=== PATIENT | female | born 1980 | race Caucasian/White ===

== ENCOUNTER 2025-06-07 08:05 | Outpatient (REF) | payer OTHER, SELFPAY | END 2025-06-07 08:06 | disposition home or self-care (01) | LOC: HO.HOSX 08:05 | PROVIDERS: Visit Provider Physician Assistant | DX: Z13.89 Encounter for screening for other disorder (principal) ==

== ENCOUNTER 2025-06-10 08:12 | Outpatient (AMB) | payer OTHER, SELFPAY ==
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
[2025-06-10 08:30] VITALS: BMI 30.9
== END 2025-06-10 09:40 | disposition home or self-care (01) ==
LOC: HO.HOS 08:13
PROVIDERS: Visit Provider Physician Assistant
DX: S82.401A Unspecified fracture of shaft of right fibula, initial encounter for closed fracture (principal)
CPT/HCPCS: 27786; 99204

== ENCOUNTER 2025-06-10 08:12 | Outpatient (REF) | payer OTHER, SELFPAY ==
--- NOTE | ~2025-06-10 | XR_ITS ---
EXAMINATION: XR ANKLE 3 OR MORE VIEWS RIGHT HISTORY: M25.579 - Pain in unspecified ankle and joints of unspecified foot COMPARISON: Comparison is made with the prior outside examination from [facility] dated 06/01/2025. FINDINGS: Three views of the right ankle are submitted. Osseous mineralization is normal. Again seen is a fracture of the distal fibula. A small amount of periosteal reaction is noted, consistent with healing. A well-corticated osseous density adjacent to the tip of the medial malleolus is likely the result of old trauma. There is a plantar calcaneal spur. The joint spaces are preserved. The soft tissues are unremarkable. XR/XR ankle RT min 3V IMPRESSION: Healing fracture of the distal fibula. Electronically signed by: Lino Pollock MD 06/10/2025 08:33 AM EDT
--- OUTSIDE RECORDS SUMMARY | 2025-06-10 08:31 | XMS_ITS | Clinical Summary ---
Author Organization [facility] [employer] [facility] lin Address [address] [facility] [place] [address] Care Team Providers Care Supervisor [employer] Name Role Phone Unavailable Primary Care Provider Unavailabl e Social History Tobacco Use Types Packs/Day Years Used Date Smoking Tobacco: Never Assessed Comments Unknown Sex and Gender Information Value Date Recorded Sex Assigned at Not on file Legal Sex Female 2:22 PM EDT Gender Identity Not on file Sexual Orientation Not on file Plan of Treatment Health Maintenance Due Date Last Done Comments Colorectal Cancer: [place]ONOS[place] PY Screening every 10 yrs (or Modifier) 1979 Depression: Screening Annual ly using PHQ-2/9 in Adults 18 yrs or above (or HM Modifier)([facility]) 1997 Hepatitis C Virus Infection in Adolescents and Adults: Screening (or Modifier) ([facility]) 1997 SDVA Screening Reminder: Justina linder for all adults ([facility]) 1997 Tobacco Smoking Cessation: i n Adults excluding Women: Behavioral and Pharmacotherapy Interventions ([facility]) 1997 DTaP/Tdap/Td Vaccines ([facility]) (1 - Tdap) 1998 Cervical Cancer Screenin 1-65 yrs of age (or Modifier) 2000 Cervical Cancer Screening: P ap every 3 yrs pts age 21-65 2000 Cervical Cancer: Pap Screeni ng with Modifier timing ([facility]) 2000 Cervical Cancer: hrHPV alone or with cotesting Pap for Pts 30-65yrs screening every 5yrs ([facility]) 2000 COVID-19 Vaccine Screening: Initial Series and Booster Status ([facility]) ( - 2023- season) 2024 Colorectal Cancer Screening 45 -75 Yrs (or HM Modifier) 2024 Colorectal Cancer: FLEXIBLE SIGMOIDOSCOPY Screening every 5 yrs 2024 Colorectal Cancer: Fecal Immunochemical Test (FIT) Annually [facility] 2024 Colorectal Cancer: High-sens itivity gFOBT Screening Annually [facility] 2024 Colorectal Cancer: Stool Col oguard Screening every 3 yrs 2024 Colorectal Cancer:CT Colonog uriah Screening every 5 yrs 2024 Flu Vaccination: Yearly for ages 18mos through 64 years (or Modifier)([facility]) 05/31/2025 Zoster/Shingles Vaccine Seri es Screening: Adults aged 18+ yrs (or HM Modifiers)([facility]) (1 of 2) 2029 Pneumococcal Vaccination Scr eening: Pts 0-19 & 19-49 yrs of age ([facility]) Aged Out No longer eligible based on patient's age to complete this topic Medical Devices Not on file Insurance [facility] [address] [place] [id number]
== END 2025-06-10 08:13 | disposition home or self-care (01) ==
LOC: HO.HOSX 08:12
PROVIDERS: Visit Provider Physician Assistant
DX: S82.401D Unspecified fracture of shaft of right fibula, subsequent encounter for closed fracture with routine healing (principal); M25.571 Pain in right ankle and joints of right foot; W21.89XD Striking against or struck by other sports equipment, subsequent encounter
CPT/HCPCS: 27786; 73610

== ENCOUNTER → 2025-06-10 08:16 | Outpatient (BNV) | payer OTHER, SELFPAY | PROVIDERS: Visit Provider Radiology Diagnostic Radiology | DX: S82.401A Unspecified fracture of shaft of right fibula, initial encounter for closed fracture (principal) | CPT/HCPCS: 73610 ==

== ENCOUNTER 2025-07-11 08:35 | Outpatient (REF) | payer OTHER, SELFPAY ==
--- NOTE | ~2025-07-11 | XR_ITS ---
EXAMINATION: XR ANKLE 3 OR MORE VIEWS RIGHT HISTORY: M25.579 - Pain in unspecified ankle and joints of unspecified foot COMPARISON: Comparison is made with the prior examination dated 06/10/2025. FINDINGS: Three views of the right ankle are submitted. Osseous mineralization is normal. There has been further healing of the previously seen nondisplaced fracture of the distal fibula with greater callus formation noted. Again seen is a well-corticated osseous density adjacent to the tip of the medial malleolus, consistent with old trauma. There is a small plantar calcaneal spur. The joint spaces are preserved. The soft tissues are unremarkable. XR/XR ankle RT min 3V IMPRESSION: Healing nondisplaced fracture of the distal fibula. Electronically signed by: Lino Pollcok MD 07/11/2025 01:49 PM EDT
--- OUTSIDE RECORDS SUMMARY | 2025-07-12 09:12 | XMS_ITS | Clinical Summary ---
Author Organization [facility] [employer] [facility] lin Address [address] [facility] [place] [address] Care Team Providers Care Arborer Name Role Phone Unavailable Primary Care Provider [...] Adults 18 yrs or above (or HM Modifier)([facility]) 1997 Hepatitis C Virus Infection in Adolescents and Adults: Screening (or Modifier) ([facility]) 1997 SDIL Screening Reminder: Justina linder for all adults ([facility]) 1997 Tobacco Smoking Cessation: i n Adults excluding Women: Behavioral and Pharmacotherapy Interventions ([facility]) 1997 DTaP/Tdap/Td Vaccines ([facility]) (1 - Tdap) 1998 Cervical Cancer Screenin 1-65 yrs of age (or Modifier) 2000 Cervical Cancer Screening: P ap every 3 yrs pts age 21-65 2000 Cervical Cancer: Pap Screeni ng with Modifier timing ([facility]) 2000 Cervical Cancer: hrHPV alone or with cotesting Pap for Pts 30-65yrs screening every 5yrs ([facility]) 2000 Colorectal Cancer Screening 45 -75 Yrs (or HM Modifier) 2024 Colorectal Cancer: FLEXIBLE SIGMOIDOSCOPY Screening every 5 yrs 2024 Colorectal Cancer: Fecal Immunochemical Test (FIT) Annually [facility] 2024 Colorectal Cancer: High-sens itivity gFOBT Screening Annually [facility] 2024 Colorectal Cancer: Stool Col oguard Screening every 3 yrs 2024 Colorectal Cancer:CT Colonog uriah Screening every 5 yrs 2024 Flu Vaccination: Yearly for ages 18mos through 64 years (or Modifier)([facility]) 05/31/2025 Zoster/Shingles Vaccine Seri es Screening: Adults aged 18+ yrs (or HM Modifiers)([facility]) (1 of 2) 2029 Pneumococcal Vaccination Scr eening: Pts 0-19 & 19-49 yrs of age ([facility]) Aged Out No longer eligible based on patient's age to complete this topic Medical Devices [place] [id number] [place] [phone]
== END 2025-07-11 08:36 | disposition home or self-care (01) ==
LOC: HO.HOSX 08:35
PROVIDERS: Visit Provider Physician Assistant
DX: S82.401D Unspecified fracture of shaft of right fibula, subsequent encounter for closed fracture with routine healing (principal); X58.XXXD Exposure to other specified factors, subsequent encounter
CPT/HCPCS: 73610

== ENCOUNTER 2025-07-11 12:44 | Outpatient (AMB) | payer OTHER, SELFPAY ==
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
== END 2025-07-11 14:26 | disposition home or self-care (01) ==
LOC: HO.HOS 12:44
PROVIDERS: Visit Provider Physician Assistant
DX: S82.401A Unspecified fracture of shaft of right fibula, initial encounter for closed fracture (principal)
CPT/HCPCS: 99024

== ENCOUNTER → 2025-07-11 12:47 | Outpatient (BNV) | payer OTHER, SELFPAY | PROVIDERS: Visit Provider Radiology Diagnostic Radiology | DX: M25.571 Pain in right ankle and joints of right foot (principal) | CPT/HCPCS: 73610 ==

== ENCOUNTER 2025-08-20 10:04 | Outpatient (REF) | payer OTHER, SELFPAY ==
--- OUTSIDE RECORDS SUMMARY | 2025-08-22 11:49 | XMS_ITS | Clinical Summary ---
Author Organization [facility] [employer] [facility] lin Address [address] [facility] [address] Care Team Providers Care Melt Supervisor Name Role Phone Unavailable Primary Care Provider [...] Adults 18 yrs or above (or HM Modifier)([facility]) 1997 Hepatitis C Virus Infection in Adolescents and Adults: Screening (or Modifier) ([facility]) 1997 SDIA Screening Reminder: Justina linder for all adults ([facility]) 1997 Tobacco Smoking Cessation: i n Adults excluding Women: Behavioral and Pharmacotherapy Interventions ([facility]) 1997 DTaP/Tdap/Td Vaccines ([facility]) (1 - Tdap) 1998 Cervical Cancer Screenin 1-65 yrs of age (or Modifier) 2000 Cervical Cancer Screening: P ap every 3 yrs pts age 21-65 2000 Cervical Cancer: Pap Screeni ng with Modifier timing ([facility]) 2000 Cervical Cancer: hrHPV alone or with cotesting Pap for Pts 30-65yrs screening every 5yrs ([facility]) 2000 Colorectal Cancer Screening 45 -75 Yrs (or HM Modifier) 2024 Colorectal Cancer: FLEXIBLE SIGMOIDOSCOPY Screening every 5 yrs 2024 Colorectal Cancer: Fecal Immunochemical Test (FIT) Annually [facility] 2024 Colorectal Cancer: High-sens itivity gFOBT Screening Annually [facility] 2024 Colorectal Cancer: Stool Col oguard Screening every 3 yrs 2024 Colorectal Cancer:CT Colonog uriah Screening every 5 yrs 2024 Flu Vaccination: Yearly for ages 18mos through 64 years (or Modifier)([facility]) 05/31/2025 COVID-19 Vaccine Screening: Initial Series and Booster Status ([facility]) (2023- season) 2025 Zoster/Shingles Vaccine Seri es Screening: Adults aged 18+ yrs (or HM Modifiers)([facility]) (1 of 2) 2029 Pneumococcal Vaccination Scr eening: Pts 0-19 & 19-49 yrs of age ([facility]) Aged Out No longer eligible based on patient's age to complete this topic Medical Devices Not on file Insurance [facility] [address] [place] [id number]
== END 2025-08-20 10:05 | disposition home or self-care (01) ==
LOC: HO.HOSX 10:04
PROVIDERS: Visit Provider Physician Assistant
DX: Z13.89 Encounter for screening for other disorder (principal)